=== PATIENT | male | born 1985 | race Hispanic/Latino ===

== ENCOUNTER 2018-06-10 07:00 | Day surgery (SDC) | payer BC ==
[~2018-06-10] VITALS: Ht 175.3 cm; Wt 81.7 kg
[~2018-06-10 07:00] MED LIST: IBU800 MG PO; ULTRAM50 MG PO; WELLBUTRIN SR100 MG PO
--- NOTE | 2018-06-10 11:20 | NUR ---
06/10/18 1120 Rosario Zamudio 1103 PT ARRIVED IN PACU COUGHING. REPOSITONED TO 45'. RIGHT FOOT HAS BOOT ON AND ELEVATED ON PILLOWS ON ARRIVAL. ICE PLACED. 1110 OXYGEN DECREASED TO 6L VIA MASK WITH SATS 100%. NO LONGER COUGHING. 1120 PT VISITING WITH STAFF. NO C/O'S.
--- NOTE | 2018-06-10 11:39 | NUR ---
PT IN BED-ALERT, OREINTED AND SUPPORTED BY HIS MOTHER. HE IS CALM-SEEMS TO HAVE INFO ENOUGH FOR HIM. GAVE DIRECTIONS TO SAH TO MOTHER. HAD PRAYER WITH PT, WILL FOLLOW NEEDED
[2018-06-10] MEDS ORDERED: ULTRAM50 MG PO (12:09)
--- NOTE | 2018-06-10 13:01 | NUR ---
HAS HAD SEVERAL CUPS COFFEE DURING STAY. BLOCK EFFECTIVE NO PAIN. TOES WDP. USES CRUTCHES VERY WELL. WANTS TO GO HOME. MOM HERE TO TAKE HIM.
--- NOTE | 2018-06-11 10:24 | OR ---
[facility] [address], [place] [address] Signed DATE OF OPERATION: 06/10/2018 SURGEON: Nick Garsia MD PREOPERATIVE DIAGNOSIS: Rupture of the heel cord, right. POSTOPERATIVE DIAGNOSIS: Rupture of the heel cord, right. PROCEDURE PERFORMED: Heel cord repair with the percutaneous jig and a SpeedBridge technique. ANESTHESIA: General. SPECIMENS AND COMPLICATIONS: There were no specimens or complications. TOURNIQUET TIME: About 45 minutes. WHAT WAS DONE: The patient was taken to the operating room. After anesthesia was induced and the airway secured, the patient was positioned prepped and draped in the prone position. The leg was exsanguinated with an Esmarch bandage. Pneumatic tourniquet was inflated to 250 mmHg pressure. We made a small transverse incision about a centimeter proximal to the palpable tip of the distal aspect of the proximal fragment. Skin was divided sharply. Subcutaneous tissue was bluntly spread. The sural nerve was identified and gently retracted. We were able to use an Allis clamp and grabbed the distal aspect of the proximal stump of the tendon and gently dissected bluntly to mobilize it. We then did the same thing with the distal port of the stump. We then inserted the jig and passed the blue looped in the black FiberTape's. We then pulled them with the jig and delivered them into the incision. We then passed the loops through the blue FiberTape to get some locking sutures. We then made two incisions, each about 8 mm long on the either side of the heel cord insertion. We then used the curved needle and passed it up through the distal portion of the heel cord and brought it into the wound. We then used it to deliver the FiberTape's into the distal part of the wound. We then secured the repair and used two swivel locks to secure it distally. At this point, the Blanco test reverted to normal. The wounds were gently irrigated and closed in a standard Electronically Signed By: NICK GARSIA MD 06/11/18 1024 PATIENT NAME: CURT DERAS OPERATIVE REPORT DATE OF : 87 REPORT #: [id number] PHYSICIAN: NIKC GARSIA MD PCP: NO PRIMARY CARE PHYSICIAN REPORT IS CONFIDENTIAL AND NOT TO BE RELEASED WITHOUT AUTHORIZATION [address] [address] Signed fashion. Sterile dressings were applied and the patient was placed back in his [facility] boot. He was awakened, taken to the recovery room where he arrived in stable condition. Counts were correct and antibiotic protocols were followed. Nick Garsia MD WFB/MODL /[id number] Copies: ~ Electronically Signed By: NICK GARSIA MD 06/11/18 1024 PATIENT NAME: AUGUSTACURT Kelly OPERATIVE REPORT DATE OF : 87 REPORT #: [id number] PHYSICIAN: NICK GARSIA MD PCP: NO PRIMARY CARE PHYSICIAN REPORT IS CONFIDENTIAL AND NOT TO BE RELEASED WITHOUT AUTHORIZATION
== END 2018-06-10 12:50 | disposition home or self-care (01) ==
LOC: DS 07:00 → OPS 07:00 → DS 09:15 → OPS 12:50
PROVIDERS: Orthopaedic Surgery
PROC: 0LQN0ZZ Repair Right Lower Leg Tendon, Open Approach (ICD-10-PCS; principal; 2018-06-10 09:15)
DX: S86.011A Strain of right Achilles tendon, initial encounter (principal); F41.0 Panic disorder [episodic paroxysmal anxiety]; Z88.5 Allergy status to narcotic agent; Z79.899 Other long term (current) drug therapy; Z87.891 Personal history of nicotine dependence; X58.XXXA Exposure to other specified factors, initial encounter; Y93.67 Activity, basketball
CPT/HCPCS: 01472; 62322; 64445; 76942; C1713; J0330; J0690; J1100; J1885; J2250; J2405; J2704; J2795; J3010; J7120